=== PATIENT | male | born 1935 | race African-American/Black ===

== ENCOUNTER 2019-05-30 03:21 | Inpatient (IN) | payer OTHER ==
[2019-05-30] MEDS ORDERED: Acetaminophen 325 MG TAB PO PRN (04:40)
[2019-05-30] MEDS ORDERED: Dextrose 5% in Water 1,000 ML IV PRN (04:59)
[2019-05-30] MEDS ORDERED: Dextrose 50% Abboject 50 ML SYRINGE SLOW IVP PRN (04:59)
[2019-05-30 05:11] VITALS: BMI 27.6
--- NOTE | 2019-05-30 05:43 | HP ---
CHIEF COMPLAINT: Abnormal labs. HISTORY OF PRESENT ILLNESS: Mr. Chavez is an 83-year-old male with past medical history of polycythemia vera?, thrombocythemia?, hypertension, hyperlipidemia, coronary artery disease, diabetes mellitus, among others, was sent to the emergency room from his correctional facility because of abnormal labs. The patient is an inmate and had lab drawn yesterday and he was found to have elevated platelet count. It was mentioned that his platelet count was 1,800,000. When he went to the emergency room, the CBC was done and he was found to have a platelet count more than 2 millions. Hemoglobin is 9.7. Requested to transfer the patient to our hospital for further management and hematology consultation. The patient denies any symptoms at this time, sometimes he feels numbness in both feet, but currently does not have any complaints. Also sometimes he has his both feet swell and he takes diuretic for that. PAST MEDICAL HISTORY: As mentioned above in history of present illness. PAST SURGICAL HISTORY: Reviewed, not pertinent. FAMILY HISTORY: Reviewed and noncontributory. SOCIAL HISTORY: Denies smoking, alcohol drinking, or drug use. Currently, the patient is an inmate. ALLERGIES: NO KNOWN ALLERGIES. HOME MEDICATIONS: Please see home medication reconciliation form for updated medications. REVIEW OF SYSTEMS: Review of 14 systems negative except what is mentioned in history of present illness. PHYSICAL EXAMINATION: GENERAL: The patient is awake, alert, oriented, does not appear to be in acute distress. VITAL SIGNS: Blood pressure 160/72, pulse is 82, respiratory rate is 16, temperature 97.9, pulse oximetry is 98% on room air. HEAD AND NECK: Normocephalic, atraumatic. NECK: Supple. No JVD. CHEST: Fair bilateral air entry. HEART: S1 and S2. Regular. ABDOMEN: Soft, nontender. Bowel sounds present. NEUROLOGIC: Awake, alert, oriented x3. PSYCHIATRIC: Normal mood. EXTREMITIES: No clubbing or cyanosis. Positive for edema. LABORATORY DATA: As mentioned above in history of present illness, CT brain was done, no acute finding. ASSESSMENT: 1. Thrombocytosis. Platelet count more than 2 million. 2. History of polycythemia vera. 3. Diabetes mellitus. 4. Hypertension. 5. Hyperlipidemia. 6. Edema of lower extremities. PLAN: 1. Admit. 2. Hematology is being consulted for evaluation and further recommendations. 3. Reconcile home medications. 4. Deep venous thrombosis prophylaxis as appropriate. 5. Expected length of stay at least 1 midnight. The patient is stable and cleared by Hematology. Job ID: [id number]
[2019-05-30] MEDS: HumaLOG 300 UNITS/3 ML VIAL SC PRN ×3 (07:37→16:51)
[2019-05-30 08:18] LABS: #Eosinphils 0.4 thou/uL (0.0-0.7); #Lymphocytes 2.2 thou/uL (1.20-3.40); #Neutrophils 6.4 thou/uL (1.40-6.50); %Basophils 0.4 % (0.0-1.0); %Lymphocytes 22.3 % (21.0-51.0); %Monocytes 9.5 % (0.0-10.0); %Neutrophils 63.8 % (42.0-75.0); Burr Cells SLIGHT = 2-5 cells (100X) (0-1/hpf); Elliptocytes SLIGHT = 2-5 cells (100X) (0-1/hpf); Giant Platelets SLIGHT; Hemoglobin 9.9 g/dL (14.0-18.0); Hypochromia SLIGHT = 6-15 cells (100X) (0-5/hpf); Large Platelets SLIGHT; MDiff Complete? YES; Mean Corpuscular HGB CONC 30.5 g/dL (32.0-36.0); Mean Corpuscular Hemoglobin 21.4 pg (27.0-31.0); Mean Platelet Volume 8.2 fL (7.4-10.4); Platelet Count Greater than 1440 thou/uL (130-400); Platelet Morphology Comment Appears Increased; RBC Distribution Width 16.3 % (11.5-14.5); Red Blood Cell (RBC) Count 4.62 mill/uL (4.70-6.10)
[2019-05-30] MEDS ORDERED: Aspirin 325 mg Enteric Coated Tablet PO SCH (09:15)
[2019-05-30] MEDS: Heparin 5,000 UNITS/ML VIAL SC SCH ×3 (09:51→21:36)
--- NOTE | 2019-05-30 10:56 | PDOC.HOSPP ---
- Subjective Encounter Date: 05/30/19 Encounter Time: 10:52 Subjective: Mr. Chavez was seen today in follow-up of elevated platelet count. He denies having any headache, no weakness or numbness in any of his extremities. He denies any visual changes. - Objective Vital Signs & Weight: Vital Signs (12 hours) Temp Pulse Resp BP Pulse Ox 05/30/19 04:40 97.9 F 82 16 162/72 H 98 Weight Weight 214 lb 14.4 oz I&O: 05/29/19 05/30/19 05/31/19 06:59 06:59 06:59 Intake Total 240 Balance 240 Result Diagrams: 05/30/19 06:57 Additional Labs: Accuchecks 05/30/19 05:32 POC Glucose 224 H Hospitalist ROS - Medication Medications: Active Medications Generic Name Dose Route Start Last Admin Trade Name Freq PRN Reason Stop Dose Admin Aspirin 325 mg 05/30/19 09:15 05/30/19 09:51 Ecotrin PO 05/30/19 11:15 325 mg NOW PACHECO Administration Heparin Sodium (Porcine) 5,000 units 05/30/19 09:00 05/30/19 09:51 Heparin SC 5,000 units TID PACHECO Administration Insulin Human Lispro 0 units 05/30/19 04:59 05/30/19 07:37 Humalog SC 3 unit .MILD SLIDING SCALE PRN Administration Mild Correctional Scale - Exam Eye: PERRL, anicteric sclera ENT: normocephalic atraumatic, no oropharyngeal lesions Heart: RRR, no rubs, normal peripheral pulses, murmur present (S3 gallop), II/IV Respiratory: CTAB, no wheezes, no rales, no ronchi, normal chest expansion, no tachypnea, normal percussion Gastrointestinal: soft, non-tender, non-distended, normal bowel sounds Extremities: no cyanosis, 1+ LE edema (bilateral lower extremity edema, in both ankles, pulses are diminished) Hosp A/P (1) Thrombocytosis Status: Acute (2) Lower extremity edema Code(s): R60.0 - LOCALIZED EDEMA Status: Acute (3) Hypertension Code(s): I10 - ESSENTIAL (PRIMARY) HYPERTENSION Status: Chronic - Plan * Thrombocytosis- he does not have any stroke symptoms or visual changes- will place him on an aspirin daily * Send off for POLY's mutation * Check a CMP * Await further recommendations from Hematology
[2019-05-30 11:50] LABS: ALT (SGPT) 15 U/L (8-55); AST (SGOT) 22 U/L (5-34); Albumin 3.8 g/dL (3.4-4.8); Alkaline Phosphatase 117 U/L (40-110); Anion Gap 12 mmol/L (10-20); BUN (Urea Nitrogen) 10 mg/dL (8.4-25.7); Bilirubin, Total 0.6 mg/dL (0.2-1.2); Calc. Creatinine Clearance 69 mL/min (70-130); Calcium 9.5 mg/dL (7.8-10.44); Carbon Dioxide 23 mmol/L (23-31); Chloride 106 mmol/L (98-107); Estimated GFR-MDRD 75; Globulin 3.4 g/dL (2.4-3.5); Glucose 195 mg/dL (83-110); Potassium 4.2 mmol/L (3.5-5.1); Protein, Total 7.2 g/dL (5.8-8.1); Sodium 137 mmol/L (136-145)
[2019-05-30] MEDS ORDERED: Hydroxyurea 500 MG CAP PO SCH ×2 (12:45→21:00)
[2019-05-30] MEDS ORDERED: Nitroglycerin 0.4 MG TAB (25 Tab Bottle) SL PRN (14:53)
[2019-05-30] MEDS: metFORMIN 500 MG TAB PO SCH (16:52)
[2019-05-30] MEDS: HumuLIN 70/30 (300 UNITS/3 ML VIAL) SC SCH (21:33)
[2019-05-30] MEDS: Timolol 0.25% Ophth Soln 5 ml Bottle EA EYE SCH (21:40)
[2019-05-30] MEDS: Latanoprost 0.005% Ophth Soln 2.5 ml Bottle EA EYE SCH (21:47)
[2019-05-31 04:59] LABS: Hemoglobin 9.5 g/dL (14.0-18.0); Mean Corpuscular HGB CONC 31.5 g/dL (32.0-36.0); Mean Corpuscular Hemoglobin 21.4 pg (27.0-31.0); Mean Platelet Volume 8.2 fL (7.4-10.4); Platelet Count Greater than 1440 thou/uL (130-400); RBC Distribution Width 19.2 % (11.5-14.5); Red Blood Cell (RBC) Count 4.42 mill/uL (4.70-6.10); White Blood Cell (WBC) Count 11.3 thou/uL (4.8-10.8)
[2019-05-31] MEDS: HumaLOG 300 UNITS/3 ML VIAL SC PRN ×3 (06:21→20:47)
[2019-05-31] MEDS ORDERED: IRON SUCROSE COMPLEX 100 MG/5 ML SLOW IVP SCH (08:00)
[2019-05-31] MEDS: Amlodipine 10 MG TAB PO SCH (08:26)
[2019-05-31] MEDS: metFORMIN 500 MG TAB PO SCH ×2 (08:26→16:21)
[2019-05-31] MEDS: Calcium Carbonate 500 MG TAB PO SCH (08:27)
[2019-05-31] MEDS: Loratadine 10 MG TAB PO SCH (08:27)
[2019-05-31] MEDS: Aspirin 325 mg Enteric Coated Tablet PO SCH (08:27)
[2019-05-31] MEDS: Timolol 0.25% Ophth Soln 5 ml Bottle EA EYE SCH ×2 (08:28→20:47)
[2019-05-31] MEDS: Tamsulosin HCl 0.4 MG CAP PO SCH (08:28)
[2019-05-31] MEDS: Heparin 5,000 UNITS/ML VIAL SC SCH ×3 (08:30→20:45)
[2019-05-31] MEDS: HumuLIN 70/30 (300 UNITS/3 ML VIAL) SC SCH ×2 (08:32→20:46)
[2019-05-31] MEDS ORDERED: Iron Sucrose Complex 500 MG in Sodium Chloride 0.9% 250 ML 250 ML IVPB SCH (08:42)
[2019-05-31] MEDS ORDERED: Lisinopril 2.5 MG TAB PO SCH (09:00)
[2019-05-31] MEDS ORDERED: pyridOXINE 50 MG (B6) TAB PO SCH (09:00)
[2019-05-31] MEDS ORDERED: Acetaminophen 500 MG TAB PO PRN (11:33)
--- NOTE | 2019-05-31 12:31 | PDOC.MOPN ---
Interval History: no new complaints eating well. no nausea. no fevers. he still has swelling - Vital Signs Vital Signs: Vital Signs (12 hours) Temp Pulse Resp BP BP Pulse Ox 05/31/19 08:27 73 168/72 H 05/31/19 08:26 73 168/72 H 05/31/19 08:00 94 L 05/31/19 07:55 98.4 F 73 16 168/72 H 94 L 05/31/19 04:00 98.5 F 72 16 149/68 H 93 L Weight Admit Weight 210 lb Weight 210 lb - Physical Exam General: Alert, No acute distress Lungs: Clear to auscultation Cardiovascular: Regular rate Abdomen: Normal bowel sounds, No tenderness, No masses Extremities: Other (1+ edema in arms and legs) Skin: No rashes Neurological: Normal speech Psych/Mental Status: Mental status NL - Labs Result Diagrams: 05/31/19 04:41 05/30/19 11:11 Lab results: Laboratory Results - last 24 hr 05/31/19 11:42: POC Glucose 153 H 05/31/19 04:48: POC Glucose 165 H 05/31/19 04:41: WBC 11.3 H, RBC 4.42 L, Hgb 9.5 L, Hct 30.0 L, MCV 68.0 L, MCH 21.4 L, MCHC 31.5 L, RDW 19.2 H, Plt Count Greater than 1440 H*, MPV 8.2 05/30/19 20:00: POC Glucose 169 H 05/30/19 16:43: POC Glucose 183 H 05/30/19 12:52: TIBC 325 05/30/19 11:09: Ferritin 33.00 A/P - Problem (1) Lower extremity edema Current Visit: Yes Code(s): R60.0 - LOCALIZED EDEMA Status: Acute (2) Thrombocytosis Current Visit: Yes Status: Acute (3) Hypertension Current Visit: Yes Code(s): I10 - ESSENTIAL (PRIMARY) HYPERTENSION Status: Chronic (4) Iron deficiency anemia Current Visit: Yes Code(s): D50.9 - IRON DEFICIENCY ANEMIA, UNSPECIFIED Status: Acute - Plan Plan: 1. IV iron today 2. continue hydrea, this may be ET but could also be an element of iron def 3. Zac 2 pending 4. He is stable for d/c but would need a cbc in 1-2 days to make sure he is responding to hydrea 5. consider BM biopsy if Zac 2 is negative 6. he will need hematology f/u as an outpt
[2019-05-31] MEDS ORDERED: Hydroxyurea 500 MG CAP PO SCH ×2 (13:00→21:00)
--- NOTE | 2019-05-31 14:00 | PDOC.HOSPP ---
- Subjective Encounter Date: 05/31/19 Encounter Time: 13:58 Subjective: Mr. Chavez was seen today in follow-up of Thrombocytosis. He does not have any symptoms. He denies headache, or any extremity weakness. - Objective Vital Signs & Weight: Vital Signs (12 hours) Temp Pulse Resp BP BP Pulse Ox 05/31/19 08:27 73 168/72 H 05/31/19 08:26 73 168/72 H 05/31/19 08:00 94 L 05/31/19 07:55 98.4 F 73 16 168/72 H 94 L 05/31/19 04:00 98.5 F 72 16 149/68 H 93 L Weight Admit Weight 210 lb Weight 210 lb I&O: 05/30/19 05/31/19 06/01/19 06:59 06:59 06:59 Intake Total 240 840 Output Total 2225 Balance 240 -1385 Result Diagrams: 05/31/19 04:41 05/30/19 11:11 Additional Labs: Accuchecks 05/31/19 05/31/19 05/30/19 11:42 04:48 20:00 POC Glucose 153 H 165 H 169 H 05/30/19 16:43 POC Glucose 183 H Hospitalist ROS - Medication Medications: Active Medications Generic Name Dose Route Start Last Admin Trade Name Denny PRN Reason Stop Dose Admin Acetaminophen 1,000 mg 05/31/19 11:33 05/31/19 11:36 Tylenol PO 05/31/19 23:00 1,000 mg ONE PRN Administration PRIOR TO IRON INFUSION Amlodipine Besylate 10 mg 05/31/19 09:00 05/31/19 08:26 Norvasc PO 10 mg DAILY PACHECO Administration Aspirin 325 mg 05/31/19 09:00 05/31/19 08:27 Ecotrin PO 325 mg DAILY PACHECO Administration Calcium Carbonate 500 mg 05/31/19 09:00 05/31/19 08:27 Oscal-500 PO 500 mg DAILY PACHECO Administration Heparin Sodium (Porcine) 5,000 units 05/30/19 09:00 05/31/19 08:30 Heparin SC 5,000 units TID PACHECO Administration Hydroxyurea 1,000 mg 05/31/19 13:00 05/31/19 13:41 Hydrea PO 05/31/19 15:00 1,000 mg NOW PACHECO Administration Insulin Human Isoph/Insulin Regular 15 units 05/30/19 21:00 05/30/19 21:33 Humulin 70/30 SC 15 unit HS PACHECO Administration Insulin Human Isoph/Insulin Regular 25 units 05/31/19 09:00 05/31/19 08:32 Humulin 70/30 SC 25 unit QAM PACHECO Administration Insulin Human Lispro 0 units 05/30/19 04:59 05/31/19 11:41 Humalog SC 2 unit .MILD SLIDING SCALE PRN Administration Mild Correctional Scale Latanoprost 1 drop 05/30/19 21:00 05/30/19 21:47 Xalatan 0.005% Ophth Soln EA EYE 1 drp HS PACHECO Administration Lisinopril 2.5 mg 05/31/19 09:00 05/31/19 08:27 Zestril PO 2.5 mg DAILY PACHECO Administration Loratadine 10 mg 05/31/19 09:00 05/31/19 08:27 Claritin PO 10 mg DAILY PACHECO Administration Metformin HCl 500 mg 05/30/19 17:00 05/31/19 08:26 Glucophage PO 500 mg BID-WM PACHECO Administration Tamsulosin HCl 0.4 mg 05/31/19 09:00 05/31/19 08:28 Flomax PO 0.4 mg DAILY PACHECO Administration Timolol Maleate 1 drop 05/30/19 21:00 05/31/19 08:28 Timoptic 0.25% Ophth Soln EA EYE 1 drp BID PACHECO Administration - Exam Eye: PERRL, anicteric sclera Heart: RRR, no murmur, no gallops, no rubs, normal peripheral pulses Respiratory: CTAB, no wheezes, no rales, no ronchi, normal chest expansion, no tachypnea, normal percussion Gastrointestinal: soft, non-tender, non-distended, normal bowel sounds, no palpable masses, no hepatomegaly Extremities: no cyanosis, 1+ LE edema Hosp A/P (1) Thrombocytosis Status: Acute (2) Lower extremity edema Code(s): R60.0 - LOCALIZED EDEMA Status: Acute (3) Hypertension Code(s): I10 - ESSENTIAL (PRIMARY) HYPERTENSION Status: Chronic (4) Diabetes mellitus type 2 in nonobese Code(s): E11.9 - TYPE 2 DIABETES MELLITUS WITHOUT COMPLICATIONS Status: Acute - Plan * Thrombocytosis- Hematology input appreciated- will continue Hydroxyurea, and JAKS mutation pending * He is receiving IV iron * Lower extremity edema- ? CHF- Echo results are pending * HTN- his blood pressure is elevated- will increase his dose of Lisinopril * DM- blood glucose is stable
[2019-05-31] MEDS: Latanoprost 0.005% Ophth Soln 2.5 ml Bottle EA EYE SCH (20:47)
[2019-06-01] MEDS: metFORMIN 500 MG TAB PO SCH ×2 (08:03→18:00)
[2019-06-01 08:27] VITALS: TEMP 98.2
[2019-06-01] MEDS: Loratadine 10 MG TAB PO SCH (08:48)
[2019-06-01] MEDS: Aspirin 325 mg Enteric Coated Tablet PO SCH (08:48)
[2019-06-01] MEDS: Tamsulosin HCl 0.4 MG CAP PO SCH (08:48)
[2019-06-01] MEDS: Calcium Carbonate 500 MG TAB PO SCH (08:48)
[2019-06-01] MEDS: Amlodipine 10 MG TAB PO SCH (08:49)
[2019-06-01] MEDS: Heparin 5,000 UNITS/ML VIAL SC SCH ×2 (08:52→14:39)
[2019-06-01] MEDS: Timolol 0.25% Ophth Soln 5 ml Bottle EA EYE SCH (08:56)
[2019-06-01] MEDS: HumuLIN 70/30 (300 UNITS/3 ML VIAL) SC SCH (08:56)
[2019-06-01] MEDS ORDERED: Hydroxyurea 500 MG CAP PO SCH (09:00)
[2019-06-01] MEDS ORDERED: Lisinopril 5 MG TAB PO SCH (09:00)
--- NOTE | 2019-06-01 09:51 | CON ---
DATE OF CONSULTATION: 05/30/2019 HISTORY OF PRESENT ILLNESS: Mr. Chavez is an 83-year-old male who is in senior living in [place], who had routine blood work drawn in the senior living and was shown to have platelets over a million. He was brought to the [facility] Emergency Room and transferred here for further workup. On repeat CBC here, his platelet count was greater than 1,440,000. He is asymptomatic. He states he has been in senior living for 24 years and does not have any plans of getting out of senior living any time soon. He denies any headaches, visual changes, or flushing. He denies fevers or night sweats. He has not had any recent weight loss. He denies early satiety, and in fact, is eating a full meal while I am taking his history. He denies any stroke-like symptoms. He denies any chest pain. No shortness of breath or recent sluggishness. PAST MEDICAL HISTORY: 1. Hypertension. 2. Hypercholesterolemia. 3. Coronary artery disease. 4. Diabetes mellitus. ALLERGIES: NO KNOWN DRUG ALLERGIES. SOCIAL HISTORY: As mentioned, he is in senior living. He denies any alcohol use. He does have a history of tobacco use. FAMILY HISTORY: No hematologic disease. REVIEW OF SYSTEMS: Otherwise, 10-point review of systems is negative. PHYSICAL EXAMINATION: VITAL SIGNS: Temperature 98.1, pulse 81, respirations 16, O2 saturation 95% on room air, and blood pressure 150/69. GENERAL: He is alert, awake, and oriented x3. He is in no acute distress. Quite pleasant, eating a meal. HEENT: Extraocular muscles are intact. Pupils are reactive to light. Sclerae are anicteric. NECK: Supple without lymphadenopathy. CARDIOVASCULAR: Regular rhythm. LUNGS: Clear to auscultation bilaterally. ABDOMEN: Hypoactive bowel sounds. Soft, nontender, and nondistended. EXTREMITIES: Bilateral 1+ pitting edema in the lower extremities. LABORATORY DATA: White blood cell count 10.0, hemoglobin 9.9, MCV 70, and platelets greater than 1,440,000. Sodium 137, potassium 4.2, chloride 106, CO2 of 23, BUN 10, creatinine 1.1, glucose 195, calcium 9.5, bilirubin 0.6, AST 22, ALT 15, alkaline phosphatase 117, LDH 455, total protein 7.2, albumin 3.8. ASSESSMENT: Mr. Chavez is an 83-year-old male with, 1. 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 2. Microcytic anemia. 3. He is asymptomatic from the above. 4. Coronary artery disease and diabetes. 5. Bilateral lower extremity edema. PLAN: 1. We will check iron studies as there could be a portion of this that is from iron deficiency, but I suspect he may have essential thrombocytosis. 2. Check a POLY-2 mutation, which will be diagnostic for essential thrombocytosis. 3. Start Hydrea 1000 mg today and we will follow his platelet count closely. 4. I discussed with him and the police officers with him that ultimately this could be likely controlled with pills as an outpatient and they will begin arrangements to discuss this case with physicians at our local to the [facility] also as well as [facility] in [place]. We will follow with you. Job ID: [id number]
[2019-06-01] MEDS: HumaLOG 300 UNITS/3 ML VIAL SC PRN (12:15)
[2019-06-01 14:34] VITALS: BP 122/57
--- NOTE | 2019-06-01 14:39 | PDOC.HOSPP ---
- Subjective Encounter Date: 06/01/19 Encounter Time: 14:37 Subjective: Mr. Chavez was seen today in follow-up of thrombocytosis. She does not have any new complaints. - Objective Vital Signs & Weight: Vital Signs (12 hours) Temp Pulse Resp BP BP Pulse Ox 06/01/19 14:32 80 18 122/57 L 06/01/19 09:19 125/83 06/01/19 08:50 82 170/73 H 06/01/19 08:49 82 170/73 H 06/01/19 08:00 95 06/01/19 07:55 98.2 F 77 19 158/73 H 95 Weight Admit Weight 210 lb Weight 210 lb I&O: 05/31/19 06/01/19 06/02/19 06:59 06:59 06:59 Intake Total 840 1045 Output Total 2225 1650 Balance -1385 605 Result Diagrams: 05/31/19 04:41 05/30/19 11:11 Additional Labs: Accuchecks 06/01/19 06/01/19 05/31/19 11:02 05:13 20:34 POC Glucose 216 H 118 H 154 H 05/31/19 17:05 POC Glucose 103 Hospitalist ROS - Medication Medications: Active Medications Generic Name Dose Route Start Last Admin Trade Name Denny PRN Reason Stop Dose Admin Amlodipine Besylate 10 mg 05/31/19 09:00 06/01/19 08:49 Norvasc PO 10 mg DAILY PACHECO Administration Aspirin 325 mg 05/31/19 09:00 06/01/19 08:48 Ecotrin PO 325 mg DAILY PACHECO Administration Calcium Carbonate 500 mg 05/31/19 09:00 06/01/19 08:48 Oscal-500 PO 500 mg DAILY PACHECO Administration Heparin Sodium (Porcine) 5,000 units 05/30/19 09:00 06/01/19 08:52 Heparin SC 5,000 units TID PACHECO Administration Hydroxyurea 1,000 mg 06/01/19 09:00 06/01/19 08:48 Hydrea PO 1,000 mg DAILY PACHECO Administration Insulin Human Isoph/Insulin Regular 15 units 05/30/19 21:00 05/31/19 20:46 Humulin 70/30 SC 15 unit HS PACHECO Administration Insulin Human Isoph/Insulin Regular 25 units 05/31/19 09:00 06/01/19 08:56 Humulin 70/30 SC 25 unit QAM PACHECO Administration Insulin Human Lispro 0 units 05/30/19 04:59 06/01/19 12:15 Humalog SC 3 unit .MILD SLIDING SCALE PRN Administration Mild Correctional Scale Latanoprost 1 drop 05/30/19 21:00 05/31/19 20:47 Xalatan 0.005% Ophth Soln EA EYE 1 drp HS PACHECO Administration Lisinopril 5 mg 06/01/19 09:00 06/01/19 08:50 Zestril PO 5 mg DAILY PACHECO Administration Loratadine 10 mg 05/31/19 09:00 06/01/19 08:48 Claritin PO 10 mg DAILY PACHECO Administration Metformin HCl 500 mg 05/30/19 17:00 06/01/19 08:03 Glucophage PO 500 mg BID-WM PACHECO Administration Tamsulosin HCl 0.4 mg 05/31/19 09:00 06/01/19 08:48 Flomax PO 0.4 mg DAILY PACHECO Administration Timolol Maleate 1 drop 05/30/19 21:00 06/01/19 08:56 Timoptic 0.25% Ophth Soln EA EYE 1 drp BID PACHECO Administration - Exam Eye: PERRL Heart: RRR, no murmur, no gallops, normal peripheral pulses Respiratory: CTAB, no wheezes, no rales, no ronchi, normal chest expansion Gastrointestinal: soft, non-tender, non-distended, normal bowel sounds, no palpable masses, no hepatomegaly Extremities: no cyanosis Hosp A/P (1) Thrombocytosis Status: Acute (2) Lower extremity edema Code(s): R60.0 - LOCALIZED EDEMA Status: Acute (3) Hypertension Code(s): I10 - ESSENTIAL (PRIMARY) HYPERTENSION Status: Chronic (4) Diabetes mellitus type 2 in nonobese Code(s): E11.9 - TYPE 2 DIABETES MELLITUS WITHOUT COMPLICATIONS Status: Acute - Plan * Thrombocytosis- discussed with Hematology * He is stable for discharge , with close outpatient follow-up
--- NOTE | 2019-06-01 14:47 | PDOC.MOPN ---
Interval History: Sleeping, no stroke like symptoms per nursing. - Vital Signs Vital Signs: Vital Signs (12 hours) Temp Pulse Resp BP BP Pulse Ox 06/01/19 14:32 80 18 122/57 L 06/01/19 09:19 125/83 06/01/19 08:50 82 170/73 H 06/01/19 08:49 82 170/73 H 06/01/19 08:00 95 06/01/19 07:55 98.2 F 77 19 158/73 H 95 Weight Admit Weight 210 lb Weight 210 lb - Physical Exam HEENT: Atraumatic, PERRLA, EOMI, Mucous membr. moist/pink Cardiovascular: Regular rate, Normal S1, Normal S2, No murmurs, Gallops, Rubs Extremities: No clubbing, No cyanosis, No edema, Normal pulses, No tenderness/ swelling Skin: No rashes, No breakdown, No significant lesion - Labs Result Diagrams: 05/31/19 04:41 05/30/19 11:11 Lab results: Laboratory Results - last 24 hr 06/01/19 11:02: POC Glucose 216 H 06/01/19 05:13: POC Glucose 118 H 05/31/19 20:34: POC Glucose 154 H 05/31/19 17:05: POC Glucose 103 05/30/19 06:57: Smear Path Review Status: lab reviewed by me A/P - Problem (1) Iron deficiency anemia Current Visit: Yes Code(s): D50.9 - IRON DEFICIENCY ANEMIA, UNSPECIFIED Status: Acute (2) Thrombocytosis Current Visit: Yes Status: Acute - Plan Plan: JAK2 pending continue hydrea weekly CBC Should follow-up with hematology in [facility] system ok to transfer back to unit from our perspective, discussed with DR. Sánchez.
--- NOTE | 2019-06-02 05:10 | DIS ---
DATE OF ADMISSION: 05/30/2019 DATE OF DISCHARGE: 06/01/2019 DISCHARGE DISPOSITION: Home. PRIMARY DISCHARGE DIAGNOSES: 1. 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 2. Diabetes mellitus. 3. Hypertension. 4. Hyperlipidemia. DISCHARGE MEDICATIONS: Include; 1. Lisinopril 5 mg daily. 2. Hydrea 1000 mg p.o. daily. 3. Flomax 0.4 mg daily. 4. Timolol 0.25% one drop in each eye twice a day. 5. Vitamin B6 of 500 mg daily. 6. Nitrostat 0.4 sublingual q.5 as needed. 7. Metformin 500 mg p.o. twice daily. 8. Loratadine 10 mg daily. 9. Latanoprost 0.05% in each eye at bedtime. 10. NovoLog R insulin as directed. 11. NPH insulin 25 units in the morning and 15 in the evening. 12. Calcium carbonate 500 mg daily. 13. Aspirin 81 mg daily. 14. Norvasc 10 mg daily. IMAGING DATA: The patient had an echocardiogram during the hospital stay showing an ejection fraction estimated at 55% to 60%. There was some E/A reversal consistent with diastolic dysfunction. HOSPITAL COURSE: Mr. Chavez is an 83-year-old gentleman, who [facility] due to an incidental finding of an elevated platelet count. His platelet count was 2 million in the correctional facility and when he was sent here, it was repeated at 1.4 million. He had no stroke symptoms, visual changes, headache, etc. His dose of aspirin was increased from 81 mg to 325. A JAK2 mutation was sent off, which was pending at the time of discharge. Hematology was consulted. The patient was started empirically on hydroxyurea and he will need close outpatient followup with a repeat CBC weekly for the next several weeks and also to follow up with the results of the lab results at the [facility] in [place], preferably with Hematology consultation. Job ID: [id number]
--- NOTE | 2019-06-02 09:29 | PQF ---
ELLEN FUENTES TONI MD [id number] CLINICAL DOCUMENTATION CLARIFICATION FORM: POST DISCHARGE Addendum to original discharge summary date: ____ Late entry note date: __ DATE:06/02/2019 ATTN: JULIANO JEFFERSON MD Please exercise your independent, professional judgment in responding to the clarification form. Clinical indicators are provided on the bottom of this form for your review Please check appropriate box(s): HEART FAILURE: A. TYPE: [ ] Systolic / HFrEF [X ] Diastolic / HFpEF [ ] Combined Systolic / Diastolic B. ACUITY [ ] Acute [ X ] Acute on Chronic [ ] Chronic [ ] Other diagnosis [ ] Unable to determine For continuity of documentation, please document condition throughout progress notes and discharge summary. Thank You. CLINICAL INDICATORS - SIGNS / SYMPTOMS / LABS Edema of lower extremities-Documented in H&P on 05/30 by Lowell Wyatt Lower extremity edema -? CHF-Echo result are pending-Documented in Hospitalist progress note on 05/31 by Juliano Jefferson The patient had an echocardiogram during the hospital stay showing an EF estimated at 55% to 60 %.There was some E/A reversal consistent with diastolic dysfunction-Documented in Discharge summary on 06/01 by Juliano Jefferson RISKS: Thrombocytosis,HTN,DM,Hyperlipidemia-Documented in Discharge summary on 06/01 by Juliano Jefferson TREATMENTS: Nitroglycerin0.4 mg SL -Documented in Medication snapshot [employer] Winform Viewer (This form is maintained as a part of the permanent medical record) 2014 [employer]. All Rights Reserved [email or web address] [not provided] MTDD
== END 2019-06-01 18:21 | DRG 814 ==
LOC: ONC 03:55 → OBSVTOIN 03:55
PROVIDERS: ADMIT Internal Medicine; ATTEND Internal Medicine
DX: D47.3 Essential (hemorrhagic) thrombocythemia (principal); I50.33 Acute on chronic diastolic (congestive) heart failure; E78.5 Hyperlipidemia, unspecified; I11.0 Hypertensive heart disease with heart failure; E11.9 Type 2 diabetes mellitus without complications; R60.0 Localized edema; I25.10 Atherosclerotic heart disease of native coronary artery without angina pectoris; I08.3 Combined rheumatic disorders of mitral, aortic and tricuspid valves; D50.9 Iron deficiency anemia, unspecified
CPT/HCPCS: 36415; 36416; 80053; 81270; 82728; 83550; 83615; 85025; 85027; 85060; 93306; J1644; J1756; J1815; J7050

== ENCOUNTER 2019-06-04 21:28 | Emergency (ER) | payer OTHER ==
[2019-06-04 22:21] LABS: ALT (SGPT) 77 U/L (8-55); AST (SGOT) 71 U/L (5-34); Albumin 4.1 g/dL (3.4-4.8); Alkaline Phosphatase 149 U/L (40-110); Anion Gap 12 mmol/L (10-20); BUN (Urea Nitrogen) 16 mg/dL (8.4-25.7); Bilirubin, Total 0.6 mg/dL (0.2-1.2); Calc. Creatinine Clearance 0 mL/min (70-130); Calcium 9.3 mg/dL (7.8-10.44); Carbon Dioxide 25 mmol/L (23-31); Chloride 105 mmol/L (98-107); Estimated GFR-MDRD 69; Globulin 3.7 g/dL (2.4-3.5); Glucose 130 mg/dL (83-110); Potassium 4.5 mmol/L (3.5-5.1); Protein, Total 7.8 g/dL (5.8-8.1); Sodium 137 mmol/L (136-145)
[2019-06-04 22:42] LABS: Platelet Count Greater than 1440 thou/uL (130-400)
[2019-06-04 22:43] LABS: #Eosinphils 0.3 thou/uL (0.0-0.7); #Lymphocytes 2.2 thou/uL (1.20-3.40); #Monocytes 0.9 thou/uL (0.11-0.59); #Neutrophils 6.2 thou/uL (1.40-6.50); %Basophils 0.3 % (0.0-1.0); %Eosinophils 3.4 % (0.0-10.0); %Monocytes 9.5 % (0.0-10.0); %Neutrophils 63.9 % (42.0-75.0); Anisocytosis MODERATE=16-30 cells (100X) (0-5/hpf); Elliptocytes SLIGHT = 2-5 cells (100X) (0-1/hpf); Hemoglobin 9.4 g/dL (14.0-18.0); Large Platelets SLIGHT; MDiff Complete? YES; Mean Corpuscular HGB CONC 31.1 g/dL (32.0-36.0); Mean Corpuscular Hemoglobin 21.4 pg (27.0-31.0); Mean Corpuscular Volume 68.8 fL (78.0-98.0); Platelet Morphology Comment Appears Increased; RBC Distribution Width 21.5 % (11.5-14.5); Red Blood Cell (RBC) Count 4.38 mill/uL (4.70-6.10); White Blood Cell (WBC) Count 9.7 thou/uL (4.8-10.8)
--- NOTE | 2019-06-04 22:58 | ULT ---
EXAM: Left upper extremity venous duplex exam INDICATIONS: Left upper extremity pain and edema COMPARISON: None. Veins of left upper extremity evaluated with ultrasound and Doppler. Color Doppler with spectral anal ysis and compression studies. FINDINGS: Left internal jugular vein shows normal flow and compression. Left subclavian vein shows normal flow with Doppler. Left axillary vein, cephalic vein, brachial vein, ulnar vein, and radial vein show normal flow and co mpression. There is thrombosis of the cephalic vein from proximal left upper extremity to below the elbow. IMPRESSION: Thrombosis of the cephalic vein of left upper extremity.
== END 2019-06-04 23:50 ==
LOC: ERS 21:28
DX: I80.8 Phlebitis and thrombophlebitis of other sites (principal); E11.9 Type 2 diabetes mellitus without complications
CPT/HCPCS: 36415; 80053; 85025

== ENCOUNTER 2019-06-12 21:37 | Emergency (ER) | payer OTHER ==
[2019-06-12 23:26] LABS: #Basophils 0.1 thou/uL (0.0-0.2); #Eosinphils 0.3 thou/uL (0.0-0.7); #Lymphocytes 2.2 thou/uL (1.20-3.40); #Monocytes 0.8 thou/uL (0.11-0.59); #Neutrophils 3.8 thou/uL (1.40-6.50); %Basophils 0.8 % (0.0-1.0); %Eosinophils 4.8 % (0.0-10.0); %Lymphocytes 31.2 % (21.0-51.0); %Monocytes 10.6 % (0.0-10.0); %Neutrophils 52.6 % (42.0-75.0); Hemoglobin 9.7 g/dL (14.0-18.0); Mean Corpuscular HGB CONC 31.2 g/dL (32.0-36.0); Mean Corpuscular Hemoglobin 22.5 pg (27.0-31.0); Mean Corpuscular Volume 72.1 fL (78.0-98.0); Mean Platelet Volume 8.3 fL (7.4-10.4); Platelet Count 1171 thou/uL (130-400); RBC Distribution Width 20.7 % (11.5-14.5); Red Blood Cell (RBC) Count 4.31 mill/uL (4.70-6.10); White Blood Cell (WBC) Count 7.2 thou/uL (4.8-10.8)
[2019-06-12 23:37] LABS: ALT (SGPT) 34 U/L (8-55); AST (SGOT) 22 U/L (5-34); Albumin 4.1 g/dL (3.4-4.8); Alkaline Phosphatase 147 U/L (40-110); Anion Gap 11 mmol/L (10-20); BUN (Urea Nitrogen) 11 mg/dL (8.4-25.7); Bilirubin, Total 0.5 mg/dL (0.2-1.2); Calc. Creatinine Clearance 0 mL/min (70-130); Calcium 9.3 mg/dL (7.8-10.44); Carbon Dioxide 28 mmol/L (23-31); Chloride 104 mmol/L (98-107); Estimated GFR-MDRD 72; Globulin 3.4 g/dL (2.4-3.5); Glucose 115 mg/dL (83-110); Potassium 3.8 mmol/L (3.5-5.1); Protein, Total 7.5 g/dL (5.8-8.1); Sodium 139 mmol/L (136-145)
== END 2019-06-13 | disposition home or self-care (01) ==
LOC: ERS 21:37
DX: D69.3 Immune thrombocytopenic purpura (principal); E11.9 Type 2 diabetes mellitus without complications
CPT/HCPCS: 36415; 80053; 85025; 93005